=== PATIENT | female | born 1940 | race Two or more races ===

== ENCOUNTER 2024-09-30 12:54 | Emergency (ER) | payer OTHER ==
[~2024-09-30] VITALS: Ht 149.9 cm; Wt 59.0 kg
[~2024-09-30 12:54] MED LIST: ATENOLOL50 MG PO; AVALIDE 300-12.1 TA1 PO; AVALIDE 300-12.1 TAB PO; GABAPENTIN400 MG PO; JANUVIA100 MG PO; NEURONTIN800 MG PO; NORVASC2.5 MG PO; PLAVIX75 MG; PLAVIX75 MG PO; PROTONIX40 MG PO; SYNTHROID112 MCG PO; SYNTHROID50 MCG; TEMAZEPAM15 MG PO; ZOCOR40 MG PO
[2024-09-30 14:33] VITALS: BP 106/66; O2SAT 98
[2024-09-30] MEDS ORDERED: ECOTRIN81 MG (14:41)
[2024-09-30] MEDS ORDERED: PEPCID AC20 MG (14:41)
[2024-09-30] MEDS ORDERED: CARVEDILOL ER40 MG (14:42)
[2024-09-30] MEDS ORDERED: LASIX20 MG (14:43)
[2024-09-30] MEDS ORDERED: ACID REDUCER20 M1 (14:44)
[2024-09-30] MEDS ORDERED: COZAAR50 MG PO (14:44)
[2024-09-30] MEDS ORDERED: RANOLAZINE ER500 MG PO (14:45)
[2024-09-30] MEDS ORDERED: JARDIANCE10 MG PO (14:45)
[2024-09-30] MEDS ORDERED: ACETAMINOPHEN 500 MG GEL..CAP PO ONE (17:45)
== END 2024-09-30 18:46 | disposition home or self-care (01) ==
LOC: ER 12:56
DX: S80.12XA Contusion of left lower leg, initial encounter (principal); S70.12XA Contusion of left thigh, initial encounter; W19.XXXA Unspecified fall, initial encounter; Y93.89 Activity, other specified; Y92.89 Other specified places as the place of occurrence of the external cause; Y99.8 Other external cause status; I11.0 Hypertensive heart disease with heart failure; E11.9 Type 2 diabetes mellitus without complications